=== PATIENT | female | born 1945 | race African-American/Black ===

== ENCOUNTER 2019-04-21 15:19 | Observation (INO) | payer OTHER ==
[2019-04-21 16:34] LABS: Absolute Lymphocytes (CBC) 1.3 K/uL (0.7-4.9); Basophils % 0.5 % (0-1.3); Eosinophils % 0.2 % (0-4.4); Hematocrit 34.2 % (36.0-45.0); Lymphocytes % 27.8 % (15.3-44.8); MPV 11.1 fL (7.6-11.3); Monocytes % 8.7 % (3.3-12.3); RBC Red Blood Cell Count 3.62 M/uL (3.86-4.86)
--- NOTE | 2019-04-21 16:35 | RAD REPORT ---
EXAM DESCRIPTION: RAD - Chest Single View - 04/21/2019 4:30 pm CLINICAL HISTORY: COUGH Chest pain. COMPARISON: <Comparisons> FINDINGS: Portable technique limits examination quality. Mild interstitial pulmonary edema. The heart is mildly enlarged in size. No displaced fractures. IMPRESSION: Mild CHF versus volume overload.
[2019-04-21 16:41] LABS: Protime INR 1.19
[2019-04-21 16:54] LABS: ALT/SGPT 33 U/L (12-78); AST/SGOT 72 U/L (15-37); Albumin 3.4 g/dL (3.4-5.0); Alkaline Phosphatase 43 U/L (45-117); BUN Blood Urea Nitrogen 34 mg/dL (7-18); Bicarbonate 21 mmol/L (21-32); Bilirubin Direct 0.2 mg/dL (0-0.2); Bilirubin Total 0.5 mg/dL (0.2-1.0); CKMB Creatine Kinase MB < 1.0 ng/mL (0.3-3.6); Creatine Phosphokinase 195 U/L (26-192); Glucose Level 85 mg/dL (74-106); Potassium 4.2 mmol/L (3.5-5.1); Protein, Total 7.6 g/dL (6.4-8.2); Sodium Level 137 mmol/L (136-145)
[2019-04-21 17:26] LABS: Blood Morphology Comment NOT SEEN (NOT SEEN); Platelet Estimate DECR; Urine White Blood Cell Casts OK
--- NOTE | 2019-04-21 17:56 | ER ---
Nurse's Notes [facility] Name: Roopa Ortiz Age: 74 yrs Sex: Female : 1945 Arrival Date: 04/21/2019 Time: 15:25 Bed 30 Private MD: Diagnosis: Acute renal failure Presentation: 04/21 15:28 Presenting complaint: Patient states: i feel bad, i came from my doctor and told me i hj might be dehydrated, they sent me here to the ER: reports sweats; denies pain;. Transition of care: patient was not received from another setting of care. Onset of symptoms was April 21, 2019. Risk Assessment: Do you want to hurt yourself or someone else? Patient reports no desire to harm self or others. Initial Sepsis Screen: Does the patient meet any 2 criteria? No. Patient's initial sepsis screen is negative. Does the patient have a suspected source of infection? No. Patient's initial sepsis screen is negative. Care prior to arrival: None. 15:28 Method Of Arrival: Ambulatory 15:28 Acuity: MELISSA 3 hj Historical: - Allergies: 15:30 No Known Allergies; hj - PMHx: 15:30 Diabetes - NIDDM; Hypertension; Hyperlipidemia; hj - PSHx: 15:30 None; hj - Immunization history:: Adult Immunizations up to date. - Social history:: Smoking status: Patient/guardian denies using tobacco. - Ebola Screening: : No symptoms or risks identified at this time. Screenin:30 Abuse screen: Denies threats or abuse. Denies injuries from another. Nutritional sg screening: No deficits noted. Tuberculosis screening: No symptoms or risk factors identified. Never had TB. Fall Risk None identified. Assessment: 15:51 General: Appears in no apparent distress. well groomed, well developed, well nourished, sg Behavior is calm, cooperative, appropriate for age. Neuro: Level of Consciousness is awake, alert, obeys commands, Oriented to person, place, time, Director Tal[employer] are equal bilaterally Moves all extremities. Gait is unsteady, Speech is normal, Facial symmetry appears normal. Cardiovascular: Heart tones S1 S2 present Capillary refill is sluggish in bilateral fingers Chest pain is denied. Respiratory: Airway is patent Respiratory effort is even, unlabored, Respiratory pattern is regular, symmetrical. GI: Abdomen is round non-distended, obese. : No signs and/or symptoms were reported regarding the genitourinary system. EENT: No signs and/or symptoms were reported regarding the EENT system. Derm: Skin is intact, is fragile, Skin is diaphoretic, moist, Skin is normal, Skin temperature is hot. Musculoskeletal: Circulation, motion, and sensation intact. Range of motion: intact in all extremities, Swelling present in right leg and left leg Reports weakness in right arm, left arm, right leg and left leg. 16:55 Reassessment: Patient appears in no apparent distress at this time. Patient and/or sg family updated on plan of care and expected duration. Pain level reassessed. Patient is alert, oriented x 3, equal unlabored respirations, skin warm/dry/pink. 18:47 Reassessment: troponin of 0.11, attempt to notify admitting provider with no answer, sg notified of troponin result and unable to reach the hospitalist. 19:00 General: Appears in no apparent distress. Behavior is calm, cooperative, appropriate ea for age. Pain: Denies pain. Neuro: Level of Consciousness is awake, alert, obeys commands, Oriented to person, place, time, Speech is normal. Cardiovascular: Patient's skin is warm and dry. Respiratory: Airway is patent Respiratory effort is even, unlabored, Respiratory pattern is regular, symmetrical. Derm: Skin is fragile, Skin is moist, Skin is normal, Skin temperature is warm. Musculoskeletal: Parent/caregiver report the patient having She normally uses walker for transfer. 20:00 Reassessment: Patient and/or family updated on plan of care and expected duration. Pain ea level reassessed. Patient is alert, oriented x 3, equal unlabored respirations, skin warm/dry/pink. 20:35 Reassessment: Report called to Ashley LOPEZ on fourth floor. ea 21:07 Reassessment: Patient and/or family updated on plan of care and expected duration. Pain ea level reassessed. Patient is alert, oriented x 3, equal unlabored respirations, skin warm/dry/pink. Pt admitted to fourth floor, left ED via stretcher per tech. Pt tolerating well. No s/s of pain or discomfort noted at this time. Vital Signs: 15:30 BP 115 / 65; Pulse 58; Resp 16; Temp 98.7(O); Pulse Ox 98% on R/A; Weight 158.76 kg; hj Height 5 ft. 6 in. (167.64 cm); Pain 0/10; 15:51 Pulse 58; Temp 99.2(O); Pulse Ox 97% ; mg2 18:01 BP 126 / 57; Pulse 55; Resp 19; Pulse Ox 99% on R/A; sg 19:00 BP 119 / 46; Pulse 56; Resp 18; Pulse Ox 98% on R/A; ea 20:00 BP 119 / 50; Pulse 56; Resp 18; Pulse Ox 98% ; ea 21:08 BP 118 / 51; Pulse 58; Resp 19; Temp 98; Pulse Ox 99% on R/A; Pain 0/10; ea 15:30 Body Mass Index 56.49 (158.76 kg, 167.64 cm) hj ED Course: 15:25 Patient arrived in ED. mr 15:25 Alec Hanson MD is Attending Physician. kdr 15:29 Triage completed. hj 15:30 Arm band placed on right wrist. hj 15:40 Arpit Guevara, JOHN is Primary Nurse. sg 15:53 No provider procedures requiring assistance completed. sg 16:15 Initial lab(s) drawn, by ED staff, sent to lab. First set of blood cultures drawn by sg . Missed attempt(s): 22 gauge in right forearm. Bleeding controlled, band aid applied, catheter tip intact. 16:18 Inserted saline lock: 20 gauge in left forearm, using aseptic technique. Blood ss collected. 16:29 X-ray completed. Portable x-ray completed in exam room. Patient tolerated procedure ml well. 16:30 Second set of blood cultures drawn by me. sg 16:32 Chest Single View XRAY In Process Unspecified. EDMS 16:53 EKG done, by explosive technician. reviewed by Aelc Hanson MD. sm3 17:49 Jennifer Zambrano MD is Hospitalizing Provider. kdr 17:58 Strep swab sent to lab. jp3 18:03 Rapid Strep Sent. jp3 18:15 bariatric bed ordered, confirmation number [id number].. bd 18:25 Straight cath inserted, using sterile technique, 16 Fr. Specimen obtained. Returned ss cloudy urine. Patient tolerated well. 19:00 Patient has correct armband on for positive identification. Bed in low position. Call ea light in reach. Side rails up X2. 20:36 Patient admitted, IV remains in place. ea Administered Medications: No medications were administered Outcome: 17:56 Decision to Hospitalize by Provider. kdr 19:00 Instructed on the need for admit, Demonstrated understanding of instructions. ea 20:34 Condition: stable ea 21:08 Admitted to Med/surg accompanied by tech, room 425, with chart, Report called to briana Ramirez RN 21:09 Patient left the ED. ea Signatures: Dispatcher [employer] EDMS Citlali Ontiveros Steven, RN RN sg Alec Hanson MD MD kdr Rivera, Jany mr Simon, Marie Meredith Hernandez RN JOHN ss Esau Perez RN Kacey Munroe RN RN ea Gardose, Michele RN RN [facility] [place] [place] Shannon Salas 3 John Carey jp3 Corrections: (The following items were deleted from the chart) 15:32 15:30 158.76 kg; Height 5 ft. 6 in.; BMI: 56.4; Pain 0/10; hj hj 15:32 15:30 Pulse 58bpm; Resp 16bpm; Pulse Ox 98% RA; Temp 98.7F Oral; 158.76 kg; Height 5 hj ft. 6 in.; BMI: 56.4; Pain 0/10; hj 16:00 15:51 Derm: Skin is pink, warm \T\ dry. sg sg
--- NOTE | 2019-04-21 17:57 | EDPHYS ---
Physician Documentation [facility] Name: Roopa Ortiz Age: 74 yrs Sex: Female : 1945 Arrival Date: 04/21/2019 Time: 15:25 Bed 30 Private MD: ED Physician Alec Hanson HPI: 04/21 17:40 This 74 yrs old Black Female presents to ER via Ambulatory with complaints of kdr dehydration. 17:40 The patient states that she has been increasingly weak and has SOB with exertion. She kdr went to her Dr. Office today and was thought to be dehydrated and was sent to the ED for evaluation. Onset: The symptoms/episode began/occurred gradually, at an unknown time. Severity of symptoms: At their worst the symptoms were mild in the emergency department the symptoms are unchanged. The patient has not experienced similar symptoms in the past. The patient has been recently seen by a physician: the patient's primary care provider. Historical: - Allergies: 15:30 No Known Allergies; hj - PMHx: 15:30 Diabetes - NIDDM; Hypertension; Hyperlipidemia; hj - PSHx: 15:30 None; hj - Immunization history:: Adult Immunizations up to date. - Social history:: Smoking status: Patient/guardian denies using tobacco. - Ebola Screening: : No symptoms or risks identified at this time. ROS: 17:40 Constitutional: Negative for fever, chills, and weight loss, Eyes: Negative for injury, kdr pain, redness, and discharge, Neck: Negative for injury, pain, and swelling. 17:40 Cardiovascular: Negative for chest pain, palpitations, and edema, Respiratory: Negative for shortness of breath, cough, wheezing, and pleuritic chest pain, Abdomen/GI: Negative for abdominal pain, nausea, vomiting, diarrhea, and constipation, Back: Negative for injury and pain, : Negative for injury, bleeding, discharge, and swelling, Skin: Negative for injury, rash, and discoloration, Neuro: Negative for headache, weakness, numbness, tingling, and seizure activity. Psych: Negative for depression, anxiety, suicide ideation, homicidal ideation, and hallucinations. 17:40 ENT: Positive for difficulty swallowing, sore throat, Dry mucous membranes, Negative for drainage from ear(s). 17:40 Skin: Positive for significant/morbid venous stasis disease. Exam: 17:40 Constitutional: This is a well developed, well nourished patient who is awake, alert, kdr and in no acute distress. Head/Face: Normocephalic, atraumatic. Eyes: Pupils equal round and reactive to light, extra-ocular motions intact. Lids and lashes normal. Conjunctiva and sclera are non-icteric and not injected. Cornea within normal limits. Periorbital areas with no swelling, redness, or edema. Neck: Trachea midline, no thyromegaly or masses palpated, and no cervical lymphadenopathy. Supple, full range of motion without nuchal rigidity, or vertebral point tenderness. No Meningismus. Chest/axilla: Normal chest wall appearance and motion. Nontender with no deformity. No lesions are appreciated. Cardiovascular: Regular rate and rhythm with a normal S1 and S2. No gallops, murmurs, or rubs. Normal PMI, no JVD. No pulse deficits. Respiratory: Lungs have equal breath sounds bilaterally, clear to auscultation and percussion. No rales, rhonchi or wheezes noted. No increased work of breathing, no retractions or nasal flaring. Abdomen/GI: Soft, non-tender, with normal bowel sounds. No distension or tympany. No guarding or rebound. No evidence of tenderness throughout. Vital Signs: 15:30 BP 115 / 65; Pulse 58; Resp 16; Temp 98.7(O); Pulse Ox 98% on R/A; Weight 158.76 kg; hj Height 5 ft. 6 in. (167.64 cm); Pain 0/10; 15:51 Pulse 58; Temp 99.2(O); Pulse Ox 97% ; mg2 18:01 BP 126 / 57; Pulse 55; Resp 19; Pulse Ox 99% on R/A; sg 19:00 BP 119 / 46; Pulse 56; Resp 18; Pulse Ox 98% on R/A; ea 20:00 BP 119 / 50; Pulse 56; Resp 18; Pulse Ox 98% ; ea 21:08 BP 118 / 51; Pulse 58; Resp 19; Temp 98; Pulse Ox 99% on R/A; Pain 0/10; ea 15:30 Body Mass Index 56.49 (158.76 kg, 167.64 cm) MDM: 17:56 Patient medically screened. kdr 17:57 Data reviewed: vital signs, nurses notes, lab test result(s), radiologic studies. kdr Counseling: I had a detailed discussion with the patient and/or guardian regarding: the historical points, exam findings, and any diagnostic results supporting the discharge/admit diagnosis, lab results, radiology results, the need for further work-up and treatment in the hospital. 04/21 15:58 Order name: Basic Metabolic Panel kdr 04/21 15:58 Order name: Blood Culture Adult (2) kdr 04/21 15:58 Order name: CBC with Diff kdr 04/21 15:58 Order name: Ckmb kdr 04/21 15:58 Order name: CPK kdr 04/21 15:58 Order name: Lactate; Complete Time: 17:20 [facility] 04/21 15:58 Order name: LFT's; Complete Time: 17:20 [facility] 04/21 15:58 Order name: Lipase kdr 04/21 15:58 Order name: Procalcitonin; Complete Time: 17:20 [facility] 04/21 15:58 Order name: Protime (+inr); Complete Time: 17:20 [facility] 04/21 15:58 Order name: Ptt, Activated; Complete Time: 17:20 [facility] 04/21 15:58 Order name: Troponin (emerg Dept Use Only) kdr 04/21 15:58 Order name: Urine Microscopic Only kdr 04/21 16:01 Order name: Basic Metabolic Panel; Complete Time: 17:20 EDNM 04/21 15:58 Order name: Chest Single View XRAY; Complete Time: 17:20 [facility] 04/21 15:58 Order name: Accucheck; Complete Time: 16:19 [facility] 04/21 15:58 Order name: Cardiac monitoring; Complete Time: 16:19 [facility] 04/21 15:58 Order name: EKG - Nurse/Tech; Complete Time: 17:31 kdr 04/21 15:58 Order name: IV Saline Lock - Large Bore; Complete Time: 16:20 [facility] 04/21 15:58 Order name: Labs collected and sent; Complete Time: 16:20 [facility] 04/21 16:01 Order name: Blood Culture EDNM 04/21 16:01 Order name: CBC with Automated Diff; Complete Time: 17:47 EDMS 04/21 16:01 Order name: CKMB Creatine Kinase MB; Complete Time: 17:20 EDMS 04/21 16:01 Order name: Creatine Phosphokinase; Complete Time: 17:20 [facility] 04/21 16:22 Order name: Glucose, Ancillary Testing; Complete Time: 16:30 [facility] 04/21 16:42 Order name: CBC Smear Scan; Complete Time: 17:47 EDNM 04/21 17:46 Order name: Rapid Strep kdr 04/21 18:10 Order name: EKG Electrocardiogram; Complete Time: 18:11 [facility] 04/21 18:29 Order name: Urine Dipstick--Ancillary (enter results) bd 04/21 18:46 Order name: Urine Dipstick-Ancillary [facility] 04/21 15:58 Order name: O2 Per Protocol; Complete Time: 16:20 kdr 04/21 15:58 Order name: O2 Sat Monitoring; Complete Time: 16:20 [facility] 04/21 15:58 Order name: Urine Dipstick-Ancillary (obtain specimen); Complete Time: 18:36 [facility] 04/21 18:01 Order name: Straight Cath - Urine; Complete Time: 18:36 sg Administered Medications: No medications were administered Disposition: 04/21/19 17:56 Hospitalization ordered by Jennifer Zambrano for Observation. Preliminary diagnosis is Acute renal failure. - Bed requested for Telemetry/MedSurg (observation). - Status is Observation. ea - Condition is Fair. - Problem is new. - Symptoms have improved. UTI on Admission? No Signatures: Dispatcher [employer] [facility] Arpit Guevara RN RN Alec Hanson MD MD [facility] Esau Perez RN RN Paola Carrera RN RN Kacey Aj RN RN ea Corrections: (The following items were deleted from the chart) 19:24 17:56 Hospitalization Ordered by Jennifer Zambrano MD for Observation. Preliminary diagnosis cg is Acute renal failure. Bed requested for Telemetry/MedSurg (observation). Status is Observation. Condition is Fair. Problem is new. Symptoms have improved. UTI on Admission? No. kdr 19:34 19:24 04/21/2019 17:56 Hospitalization Ordered by Jennifer Zambrano MD for Observation. cg Preliminary diagnosis is Acute renal failure. Bed requested for Telemetry/MedSurg (observation). Status is Observation. Condition is Fair. Problem is new. Symptoms have improved. UTI on Admission? No. cg 21:09 19:34 04/21/2019 17:56 Hospitalization Ordered by Jennifer Zambrano MD for Observation. ea Preliminary diagnosis is Acute renal failure. Bed requested for Telemetry/MedSurg (observation). Status is Observation. Condition is Fair. Problem is new. Symptoms have improved. UTI on Admission? No. cg
--- NOTE | 2019-04-21 18:23 | P.HP ---
Certification for Inpatient Patient admitted to: Observation Practitioner: I am a practitioner with admitting privileges, knowledge of patient current condition, hospital course, and medical plan of care. Services: Services provided to patient in accordance with Admission requirements found in Title 42 Section 412.3 of the Code of Federal Regulations Patient History Date of Service: 04/21/19 Reason for admission: NIMESH History of Present Illness: This is a 74 yr old female with DM2, HTN, HLD admitted for NIMESH. Per patient, she went to her PCP office today and was sent to the ER because she was thought to be dehydrated. Per patient, no labs or workup was done in the PCP office. She initially had gone to PCP for sore throat. She was then worked up in the ER and was to have NIMESH with elevated creatinine along with CHF/volume overload pattern on CXR. Pro-BNP was not ordered. Her labs were also remarkable for elevated troponin and platelet count of 80. Her CK was elevated at 195. She was hemodynamically stable though. At the time of my exam, patient was AAOx3, in no acute distress. She continued to complain of generalized weakness but denied any SOB, CP, dizziness, PAK, vision changes, speech changes, syncopal/ presyncopal, GI complaints. She was admitted for observation for her NIMESH and volume overload/possible CHF exacerbation (new diagnosis). Allergies No Known Allergies Allergy (Unverified 01/08/13 15:14) Physical Examination - Physical Exam General: Alert, In no apparent distress, Oriented x3, Obese HEENT: Atraumatic, PERRLA, Mucous membr. moist/pink, EOMI, Sclerae nonicteric Neck: Supple, 2+ carotid pulse no bruit, No LAD, Without JVD or thyroid abnormality Respiratory: Diminished, Crackles/rales Cardiovascular: Regular rate/rhythm, Normal S1 S2 Gastrointestinal: Normal bowel sounds, No tenderness Musculoskeletal: No tenderness Integumentary: No rashes, Other (chronic skin changes and lymphedema bilateral lower extermities ) Neurological: Normal gait, Normal speech, Normal strength at 5/5 x4 extr, Normal tone, Normal affect - Studies Laboratory Data (last 24 hrs) 04/21/19 16:15: PT 14.0 H, INR 1.19, APTT 33.4 04/21/19 16:15: WBC 4.5, Hgb 12.2, Hct 34.2 L, Plt Count 80 L 04/21/19 16:15: Sodium 137, Potassium 4.2, BUN 34 H, Creatinine 2.18 H, Glucose 85, Total Bilirubin 0.5, AST 72 H, ALT 33, Alkaline Phosphatase 43 L Assessment and Plan - Problems (Diagnosis) (1) NIMESH (acute kidney injury) Current Visit: Yes Status: Acute (2) Thrombocytopenia Current Visit: Yes Status: Acute (3) Volume overload Current Visit: Yes Status: Acute (4) Morbid obesity Current Visit: No Status: Chronic (5) Elevated troponin Current Visit: Yes Status: Acute (6) Hypertension Current Visit: Yes Status: Chronic Qualifiers: Hypertension type: essential hypertension Qualified Code(s): I10 - Essential (primary) hypertension (7) Diabetes mellitus Current Visit: Yes Status: Acute Qualifiers: Diabetes mellitus type: type 2 Diabetes mellitus alf insulin use: without social sciences department chair use Diabetes mellitus complication status: with kidney complications Diabetes mellitus complication detail: with other kidney complication Qualified Code(s): E11.29 - Type 2 diabetes mellitus with other diabetic kidney complication (8) Urinary tract infection Current Visit: Yes Status: Suspected Qualifiers: Urinary tract infection type: acute cystitis Hematuria presence: without hematuria Qualified Code(s): N30.00 - Acute cystitis without hematuria - Plan Admit to floor. Volume overload pattern on CXR. Elevated Cr, unsure of baseline. No recent labs to compare with. Renal utlrasound ordered, pending. ECHO ordered, pending. Trend troponins - elevated likely secondary to volume overload along with NIMESH. Nephrology consulted, awaiting recommendations. Hold IVF at this time. Will diurese as needed. Rocephin for suspected UTI, UCx pending. Restart home medications at tolerated. Fluid restriction, daily weights. - Advance Directives Does patient have a Living Will: No Does patient have a Durable POA for Healthcare: No
[2019-04-21 18:40] LABS: Troponin (Emerg Dept Use Only) 0.11 ng/mL (0.0-0.045)
[2019-04-21 18:45] LABS: Urine Blood TRACE (NEG); Urine Glucose NEGATIVE (NEG); Urine Protein 2+ (NEG); Urine pH 5.5 (5.0-7.0)
[2019-04-21 19:12] LABS: Urine Bacteria >50 /HPF (<20); Urine Culture Reflex Order REFLEXED; Urine RBC <5 /HPF (NONE SEEN)
[2019-04-21] MEDS ORDERED: FUROSEMIDE 40 MG/4 ML VIAL IV ONE (21:41)
[2019-04-21] MEDS ORDERED: CEFTRIAXONE 1 GM/50 ML BAG IV SCH (22:00)
[2019-04-21] MEDS ORDERED: CEFTRIAXONE 1 GM/10 ML SYR IVP SCH (23:00)
[2019-04-21] MEDS ORDERED: CEFTRIAXONE 1000 MG/VIAL IVP SCH (23:00)
[2019-04-21] MEDS: CEFTRIAXONE 1 GM/10 ML SYR IVP SCH (23:40)
[2019-04-21] MEDS ORDERED: CEFTRIAXONE/SWI 1gm 1 GM/10 ML SYR ONE (23:57)
[2019-04-22] MEDS ORDERED: D50W 25 GM/50 ML SYRINGE IV PRN (01:36)
[2019-04-22] MEDS ORDERED: GLUCAGON 1 MG/VIAL IM PRN (01:36)
[2019-04-22 04:29] LABS: Absolute Lymphocytes (CBC) 1.4 K/uL (0.7-4.9); Basophils % 0.4 % (0-1.3); Eosinophils % 0.7 % (0-4.4); Hematocrit 34.5 % (36.0-45.0); Lymphocytes % 27.4 % (15.3-44.8); MPV 10.8 fL (7.6-11.3); Monocytes % 7.3 % (3.3-12.3); RBC Red Blood Cell Count 3.65 M/uL (3.86-4.86)
[2019-04-22 04:42] LABS: Albumin 3.2 g/dL (3.4-5.0); Bilirubin Total 0.4 mg/dL (0.2-1.0); Potassium 4.1 mmol/L (3.5-5.1); Protein, Total 7.4 g/dL (6.4-8.2)
[2019-04-22] MEDS: INSULIN -REGULAR HUMAN 50 UNIT/0.5 ML ML SQ SCH ×4 (07:25→21:00)
--- NOTE | 2019-04-22 07:56 | EKG ---
Test Date: 2019-04-21 Test Time: 16:52:31 [employer]ator: JAVIER MEASUREMENT RESULTS: Intervals: Rate: 57 OR: 200 QRSD: 92 QT: 442 QTc: 430 [place]: P: 69 OR: 200 QRS: 34 T: 41 INTERPRETIVE STATEMENTS: Sinus bradycardia Otherwise normal ECG Compared to ECG 11/07/2001 21:05:00 Sinus rhythm no longer present T-wave abnormality no longer present Possible ischemia no longer present Left ventricular hypertrophy no longer present Electronically Signed On 04-22-19 07:55:08 CDT by You Berg
--- NOTE | 2019-04-22 08:27 | RAD REPORT ---
EXAM DESCRIPTION: US - Renal Ultrasound-Complete - 04/22/2019 8:19 am CLINICAL HISTORY: Elevated Creatinine, Eval for Chronic disease COMPARISON: No comparisons FINDINGS: The kidneys are normal in echogenicity but demonstrate thin cortex bilaterally. The right kidney measures 11.0 x 5.2 x 4.5 cm. No hydronephrosis, focal mass or perinephric fluid. The left kidney measures 9.5 x 5.5 x 5.1 cm. No hydronephrosis, focal mass or perinephric fluid. The urinary bladder is incompletely distended without gross abnormality seen. IMPRESSION: Cortical thinning involving both kidneys is noted. Otherwise, unremarkable study.
[2019-04-22] MEDS: PHENOL 1.4% ORAL SPRAY 180ML MM PRN ×2 (10:52→15:11)
[2019-04-22] MEDS: NA CHLORIDE 0.9% 1,000 ML IV SCH (12:23)
--- NOTE | 2019-04-22 12:52 | ECHO ---
HEIGHT: 5 ft 6 in WEIGHT: 350 lb 0 oz DATE OF STUDY: 04/22/[address]: Jennifer Zambrano MD 2-DIMENSIONAL: NO M.MODE: NO DOPPLER: NO COLOR FLOW: YES TDS: NO PORTABLE: NO DEFINITY: NO BUBBLE STUDY: NO DIAGNOSIS: VOLUME OVERLOAD CARDIAC HISTORY: CATHERIZATION: NO SURGERY: NO PROSTHETIC VALVE: NO PACEMAKER: NO MEASUREMENTS (cm) DIASTOLIC (NORMALS) SYSTOLIC (NORMALS) IVSd 1.2 (0.6-1.2) LA Diam 3.4 (1.9-4.0) LVEF 64% LVIDd 4.4 (3.5-5.7) LVIDs 2.9 (2.0-3.5) %FS 35% LVPWd 1.2 (0.6-1.2) Ao Diam 2.9 (2.0-3.7) 2 DIMENSIONAL ASSESSMENT: RIGHT ATRIUM: NORMAL LEFT ATRIUM: NORMAL RIGHT VENTRICLE: NORMAL LEFT VENTRICLE: LEFT VENTRICULAR HYPERTROPHY TRICUSPID VALVE: NORMAL MITRAL VALVE: NORMAL PULMONIC VALVE: NORMAL AORTIC VALVE: NORMAL PERICARDIAL EFFUSION: NONE AORTIC ROOT: NORMAL LEFT VENTRICULAR WALL MOTION: NORMAL. DOPPLER/COLOR FLOW: PHYSIOLOGIC TRICUSPID REGURGITATION. NORMAL RIGHT VENTRICULAR SYSTOLIC PRESSURE. COMMENTS: NORMAL LEFT VENTRICULAR EJECTION FRACTION. BORDERLINE LEFT VENTRICULAR HYPERTROPH, OTHERWISE NORMAL 2D ECHO WITH DOPPLER. TECHNOLOGIST: SONDRA CAMEJO
--- NOTE | 2019-04-22 14:27 | PN ---
Date of Progress Note: 04/22/2019 Subjective: The patient was admitted with acute kidney injury. KELLEY/MARÍA Voice ID: [id number] Report ID: [id number]
--- NOTE | 2019-04-22 15:08 | P.PN ---
Subjective Date of Service: 04/22/19 Chief Complaint: NIMESH Subjective: No C/O voiced Patient seen and examined at bedside. Granddaughter at bedside. Chart reviewed and case discussed with nursing staff and Dr. Holguin. Patient with no complaints today No acute event noted overnight. Review of Systems 10-point ROS is otherwise unremarkable Physical Examination - Vital Signs Temperature: 98.7 F Blood Pressure: 135/60 Pulse: 56 Respirations: 18 Pulse Ox (%): 98 - Physical Exam General: Alert, In no apparent distress, Oriented x3, Obese Respiratory: Clear to auscultation bilaterally, Normal air movement Cardiovascular: Regular rate/rhythm, Normal S1 S2 Gastrointestinal: Normal bowel sounds, No tenderness Integumentary: Other (Chronic bilateral LE lymphedema and skin changes) - Studies Laboratory Data (last 24 hrs) 04/21/19 16:15: PT 14.0 H, INR 1.19, APTT 33.4 04/21/19 16:15: Lipase 181 04/21/19 16:15: WBC 4.5, Hgb 12.2, Hct 34.2 L, Plt Count 80 L 04/21/19 16:15: Sodium 137, Potassium 4.2, BUN 34 H, Creatinine 2.18 H, Glucose 85, Total Bilirubin 0.5, AST 72 H, ALT 33, Alkaline Phosphatase 43 L Microbiology Data (last 24 hrs): 04/21/19 17:58 Throat Group A Streptococcus Rapid Screen - Final Assessment And Plan - Current Problems (Diagnosis) (1) NIMESH (acute kidney injury) Current Visit: Yes Status: Acute Plan: Elevated Cr, unsure of baseline. No recent labs to compare with. Renal ultrasound with cortical thinning and normal echogenic kidneys. - Patient could have underlying CKD due to long standing DM and HTN. - Nephrology consulted, recommendations appreciated. - Hold IVF at this time. - Continue IV diuresis (2) Volume overload Current Visit: Yes Status: Acute Plan: Continue IV diuresis - ECHO w/ normal EF - Fluid restriction, daily weights. (3) Thrombocytopenia Current Visit: Yes Status: Acute (4) Elevated troponin Current Visit: Yes Status: Acute Plan: Troponin slightly elevated, though stable. Doubt ACS - elevated likely secondary to volume overload along with NIMESH. Denies chest pain (5) Hypertension Current Visit: Yes Status: Chronic Plan: Continue home medications at tolerated. Qualifiers: Hypertension type: essential hypertension Qualified Code(s): I10 - Essential (primary) hypertension (6) Diabetes mellitus Current Visit: Yes Status: Acute Plan: Accu-check and sliding scale insuline Qualifiers: Diabetes mellitus type: type 2 Diabetes mellitus skilled nursing insulin use: without skilled nursing use Diabetes mellitus complication status: with kidney complications Diabetes mellitus complication detail: with other kidney complication Qualified Code(s): E11.29 - Type 2 diabetes mellitus with other diabetic kidney complication (7) Urinary tract infection Current Visit: Yes Status: Suspected Plan: Rocephin for suspected UTI, UCx pending. Qualifiers: Urinary tract infection type: acute cystitis Hematuria presence: without hematuria Qualified Code(s): N30.00 - Acute cystitis without hematuria (8) Morbid obesity Current Visit: No Status: Chronic - Plan DVT prophylaxis: Hold chemical AC due to thrombocytopenia GI prophylaxis: None Diet: Renal, fluid restriction Disposition: Pending symptomatic improvement and renal workup Discharge Plan: Home Plan to discharge in: 24 Hours
--- NOTE | 2019-04-22 16:09 | CON ---
Date of Consultation: 04/22/2019 Additional Consulting Physician: Dr. Zambrano. Reason For Consultation: Elevated BUN and creatinine and fluid management. History Of Present Illness: This is a 74-year-old female with significant past medical history of di abetes, hypertension, hyperlipidemia. The patient was in her doctor's office, found to have weakness and dehydrated. Her workup in the office showed elevation in BUN and creatinine. For that reason, the patient was sent to the hospital, reviewing the record for the patient. The patient denied takin g any nonsteroidal. No IV contrast. According to the patient, no recent change in her medications. The patient no recent hospitalization. The patient's home medication does not have any ARB, but she was on diuresis. The patient is complaining from shortness of breath. Upon presentation to the [facility], the patient's creatinine was 2.1. After gentle hydration, creatinine down to 1.8. Reviewing the record for the patient, her blood pressure on presentation was down to 115. I do not have recent lab test. The patient earliest lab test we have it back in 2012. At that time, her creatinine was 1.04 with GFR of above 60. Past Medical History: Include: 1.Diabetes complicated with neuropathy. 2.Hypertension. 3.Hyperlipidemia. 4.Lymphedema. Allergies: NO KNOWN DRUGS ALLERGY. Social History: Non-obtainable. Past Surgical History: Noncontributory. Review of Systems: Head and Neck: No red eye. No ear pain. GI: Decreased intake. : No polyuria. No dysuria. No hematuria. Manager Card: No vaginal discharge. Respiratory: Has shortness of breath. Cardiovascular: Has leg edema. Has lymphedema. Musculoskeletal: Generalized fatigue. Neuro: Difficulty ambulating. Skin: No rash. Has venous stasis. Endocrine: No polydipsia. Physical Examination: Vital Signs: When I saw the patient, blood pressure of 135/60, pulse of 56. Chest: Clear to auscultation. Heart: S1, S2. Regular. Abdomen: Soft, nontender. Extremities: Lymphedema, bilateral; +3 venous stasis change, bilateral. Laboratory Data: WBC 5.1, H and H 12.2/35.5, back in 2012, H and H 9.7/28.6. Sodium 137, potassium 4.1, bicarb 23, BUN 34, creatinine 1.8, calcium of 8. Urinalysis; specific gravity of 1.020, wbc's o f 20. Renal ultrasound 09/12.5, no hydronephrosis, cortical thinning. Current Medications: In the hospital include: 1.Lasix. 2.Ceftriaxone. Assessment And Plan: 1.Acute kidney injury secondary to prerenal, superimposed with toxic acute tubular necrosis and prot einuric, normal-sized kidney. Hydronephrosis has been ruled out. I am going to go ahead and start t he patient on gentle hydration and we will monitor the patient closely. 2.I am going to hold all blood pressure medications. 3.Urinary tract infection. We will start the patient on ceftriaxone. We will follow up culture. 4.Hypertension. Currently, blood pressure on the lower side. With the presence of acute kidney inj ury, hold all blood pressure medications. 5.Deconditioning. Continue PT, OT. 6.Lymphedema. We will accept the edema for the time being. We will follow up. RAKEL Voice ID: [id number] Report ID: [id number]
[2019-04-22] MEDS: CEFTRIAXONE 1 GM/10 ML SYR IVP SCH (20:29)
[2019-04-22] MEDS: CARVEDILOL 3.125 MG TAB PO SCH (20:29)
[2019-04-22] MEDS ORDERED: ATORVASTATIN 10 MG TAB PO SCH (21:00)
[2019-04-22] MEDS ORDERED: GABAPENTIN 100 MG CAP PO SCH (21:00)
[2019-04-22] MEDS ORDERED: HOME MED 1 EA UNK (Pravastatin Sodium [Pravastatin Sodium] 1 TAB) PO SCH (21:00)
[2019-04-23 03:09] VITALS: BMI 59.0
[2019-04-23 05:15] LABS: Albumin 2.8 g/dL (3.4-5.0); Magnesium 1.9 mg/dL (1.8-2.4); Phosphorus 2.6 mg/dL (2.5-4.9); Thyroid Stimulating Hormone 0.592 uIU/mL (0.360-3.740)
[2019-04-23] MEDS ORDERED: LEVOTHYROXINE SOD 0.1 MG TAB PO SCH (06:00)
[2019-04-23] MEDS: INSULIN -REGULAR HUMAN 50 UNIT/0.5 ML ML SQ SCH ×2 (07:30→11:30)
[2019-04-23] MEDS: NA CHLORIDE 0.9% 1,000 ML IV SCH ×2 (08:00→09:45)
[2019-04-23] MEDS: CARVEDILOL 3.125 MG TAB PO SCH (08:41)
[2019-04-23 08:43] VITALS: BP 126/58
[2019-04-23 08:49] VITALS: TEMP 97.5
[2019-04-23] MEDS ORDERED: HOME MED 1 EA UNK (Losartan Potassium [Losartan Potassium] 1 TAB) PO SCH (09:00)
[2019-04-23] MEDS ORDERED: FOLIC ACID PO SCH (09:00)
[2019-04-23] MEDS ORDERED: ASPIRIN 81 MG CHEWABLE TABLET PO SCH (09:00)
[2019-04-23] MEDS ORDERED: MULTIVIT W/ MINERAL TAB PO SCH (09:00)
[2019-04-23] MEDS ORDERED: MULTIVIT CALC MINS PO SCH (09:00)
[2019-04-23] MEDS ORDERED: [UNRECOGNIZED DRUG - OTHER] PO SCH (09:00)
[2019-04-23] MEDS ORDERED: LOSARTAN POTASSIUM 50 MG TABLET PO SCH (09:00)
[2019-04-23] MEDS ORDERED: AMLODIPINE 10 MG TAB PO SCH (09:00)
--- NOTE | 2019-04-23 11:18 | P.PN ---
Subjective Date of Service: 04/23/19 Chief Complaint: NIMESH Subjective: No C/O voiced Patient seen and examined at bedside. Granddaughter at bedside. Chart reviewed and case discussed with nursing staff and Dr. Holguin. Rapid response called yesterday when patient on the bedside comode, while having a bowel movement. Patient then placed back in bed. She did have bradycardia at that time, which resolved. Patient's symptoms also resolved. Patient and family refused to work with physical therapy stating that physical therapist is too small and patient is afraid of falling. Per family and patient, patient was independent prior to admission using a lift chair at home and a walker to move around. This morning, patient with no complaints. Denies any chest pain, shortness of breath, dizziness, headache, GI or complaints. Review of Systems 10-point ROS is otherwise unremarkable Physical Examination - Vital Signs Temperature: 97.5 F Blood Pressure: 126/58 Pulse: 58 Respirations: 16 Pulse Ox (%): 96 - Physical Exam General: Alert, In no apparent distress, Oriented x3, Obese Respiratory: Clear to auscultation bilaterally, Normal air movement Cardiovascular: Regular rate/rhythm, Normal S1 S2 Gastrointestinal: Normal bowel sounds, No tenderness Assessment And Plan - Current Problems (Diagnosis) (1) NIMESH (acute kidney injury) Current Visit: Yes Status: Acute Plan: Elevated Cr, unsure of baseline. No recent labs to compare with. Renal ultrasound with cortical thinning and normal echogenic kidneys. - Patient could have underlying CKD due to long standing DM and HTN versus prerenal - Nephrology consulted, recommendations appreciated. - Continue IV diuresis (2) Volume overload Current Visit: Yes Status: Acute Plan: Continue IV diuresis - ECHO w/ normal EF - Fluid restriction, daily weights. (3) Thrombocytopenia Current Visit: Yes Status: Acute (4) Elevated troponin Current Visit: Yes Status: Acute Plan: Troponin slightly elevated, though stable. Doubt ACS - elevated likely secondary to volume overload along with NIMESH. Denies chest pain (5) Hypertension Current Visit: Yes Status: Chronic Plan: Continue home medications at tolerated. Qualifiers: Hypertension type: essential hypertension Qualified Code(s): I10 - Essential (primary) hypertension (6) Diabetes mellitus Current Visit: Yes Status: Acute Plan: Accu-check and sliding scale insuline Qualifiers: Diabetes mellitus type: type 2 Diabetes mellitus manager terminal insulin use: without manager terminal use Diabetes mellitus complication status: with kidney complications Diabetes mellitus complication detail: with other kidney complication Qualified Code(s): E11.29 - Type 2 diabetes mellitus with other diabetic kidney complication (7) Urinary tract infection Current Visit: Yes Status: Suspected Plan: Rocephin for suspected UTI, UCx pending. Qualifiers: Urinary tract infection type: acute cystitis Hematuria presence: without hematuria Qualified Code(s): N30.00 - Acute cystitis without hematuria (8) Morbid obesity Current Visit: No Status: Chronic (9) Physical debility Current Visit: Yes Status: Acute Plan: Physical therapy was consulted. Patient and family refused with physical therapy as they stated physical that was too small. Unsure if patient is a safe discharge home as she is not working with physical therapy here. Family states that she wants to go home, refusing facility placement [facility] or skilled. Discussed with patient and daughter regarding working with physical therapy here as they are trained and able to assist patient. Social work on board for discharge planning - Plan DVT prophylaxis: Hold chemical AC due to thrombocytopenia GI prophylaxis: None Diet: Renal, fluid restriction Disposition: Pending symptomatic improvement and renal workup. Unsure if safe discharge home. Social work on board for discharge planning
[2019-04-23 11:52] VITALS: O2SAT 96
--- NOTE | 2019-04-23 12:10 | P.PN ---
Subjective Date of Service: 04/23/19 Chief Complaint: NIMESH Subjective: Improving Pt was sent form PCP for wekaness and dehydration today no overnight events pt stated she feels better Cr stable i had prolonged discussion with pt and granddaughter , pt and family insisting on going home, pt can be discharged today to avoid NSAID, hold losrtan at home F/U with nephrology clinic in 2-3 wks Physical Examination - Vital Signs Temperature: 97.5 F Blood Pressure: 126/58 Pulse: 58 Respirations: 16 Pulse Ox (%): 96 - Physical Exam General: In no apparent distress, Oriented x3, Obese HEENT: Atraumatic Neck: Supple, Without JVD or thyroid abnormality Respiratory: Clear to auscultation bilaterally, Normal air movement Cardiovascular: No gallops, No rubs, No murmurs, Other (Lymphedema) Gastrointestinal: Normal bowel sounds, Soft and benign Assessment And Plan - Current Problems (Diagnosis) (1) NIMESH (acute kidney injury) Current Visit: Yes Status: Acute - Plan Acute kidney injury Vs progressive CKD unknwon baseline Cr , last cr in 2015 ~1.0 now Cr 1.9 and stable US: thin coretx UA +2 pro, few RBCs hold losartan F/u with nephrology clinic as an Op -m 2-3 wks HTN controlled hold losratan UTI ont Abx ,
--- NOTE | 2019-04-23 13:40 | P.DS ---
Admission Date: 04/21/19 Discharge Date: 04/23/19 Disposition: ROUTINE DISCHARGE Discharge Condition: FAIR Reason for Admission: NIMESH Consultations: Nephrology - Problems (1) NIMESH (acute kidney injury) Current Visit: Yes Status: Acute (2) Volume overload Current Visit: Yes Status: Acute (3) Thrombocytopenia Current Visit: Yes Status: Acute (4) Elevated troponin Current Visit: Yes Status: Acute (5) Hypertension Current Visit: Yes Status: Chronic Qualifiers: Hypertension type: essential hypertension Qualified Code(s): I10 - Essential (primary) hypertension (6) Diabetes mellitus Current Visit: Yes Status: Acute Qualifiers: Diabetes mellitus type: type 2 Diabetes mellitus [facility] insulin use: without [facility] use Diabetes mellitus complication status: with kidney complications Diabetes mellitus complication detail: with other kidney complication Qualified Code(s): E11.29 - Type 2 diabetes mellitus with other diabetic kidney complication (7) Urinary tract infection Current Visit: Yes Status: Acute Qualifiers: Urinary tract infection type: acute cystitis Hematuria presence: without hematuria Qualified Code(s): N30.00 - Acute cystitis without hematuria (8) Morbid obesity Current Visit: Yes Status: Chronic (9) Physical debility Current Visit: Yes Status: Acute Brief History of Present Illness: This is a 74 yr old female with DM2, HTN, HLD admitted for NIMESH. Per patient, she went to her PCP office today and was sent to the ER because she was thought to be dehydrated. Per patient, no labs or workup was done in the PCP office. She initially had gone to PCP for sore throat. She was then worked up in the ER and was to have NIMESH with elevated creatinine along with CHF/volume overload pattern on CXR. Pro-BNP was not ordered. Her labs were also remarkable for elevated troponin and platelet count of 80. Her CK was elevated at 195. She was hemodynamically stable though. At the time of my exam, patient was AAOx3, in no acute distress. She continued to complain of generalized weakness but denied any SOB, CP, dizziness, PAK, vision changes, speech changes, syncopal/ presyncopal, GI complaints. Hospital Course: She was admitted for observation for her NIMESH and volume overload/possible CHF exacerbation (new diagnosis). Nephrology was consulted. She was started with IV Lasix and an echocardiogram was done, which was with normal ejection fraction but LVH. Renal ultrasound was also done, no underlying hydronephrosis or increased echogenicity noted. Patient symptoms seemed to improve. Her stay was complicated by a Rapid response that was called when patient on the bedside comode, while having a bowel movement. It seemed that this was a vasovagal episode. Patient then placed back in bed. She did have bradycardia at that time , which resolved. Patient's symptoms of dizziness also resolved. Patient and family refused to work with physical therapy stating that physical therapist is too small and patient is afraid of falling. Patient and family was educated and counseled on the role of physical therapy by the physical therapist and myself. Family continue to refuse along with the patient. Per family and patient, patient was independent prior to admission using a lift chair at home and a walker to move around. Even though it is not my 1st preference, patient and family refuses residential facility and refuse home health. Discussed this case with the rn case management. Unfortunately, patient also does not have resources. She was cleared from nephrology point of view. Medically she was stable for discharge. She was then discharged home with family, who states that they have support at home and patient was fairly independent prior to admission as noted above. Vital Signs/Physical Exam: Temp Pulse Resp BP Pulse Ox 97.5 F 58 16 126/58 L 96 04/23/19 12:10 04/23/19 12:10 04/23/19 12:10 04/23/19 12:10 04/23/19 12:10 General: Alert, In no apparent distress, Obese HEENT: Atraumatic, PERRLA, EOMI Neck: Supple, JVD not distended Respiratory: Clear to auscultation bilaterally, Normal air movement Cardiovascular: Regular rate/rhythm, Normal S1 S2 Gastrointestinal: Normal bowel sounds, No tenderness Musculoskeletal: No tenderness, Other (Chronic severe lymphedema, bilaterally. Heart bilateral lower extremity skin changes.) Integumentary: No rashes Neurological: Normal speech, Normal tone, Normal affect Lymphatics: No axilla or inguinal lymphadenopathy Laboratory Data at Discharge: WBC 5.1 K/uL (4.3-10.9) 04/22/19 03:40 Hgb 12.2 g/dL (12.0-15.0) 04/22/19 03:40 Hct 34.5 % (36.0-45.0) L 04/22/19 03:40 Plt Count 68 K/uL (152-406) L 04/22/19 03:40 PT 14.0 SECONDS (9.5-12.5) H 04/21/19 16:15 INR 1.19 04/21/19 16:15 APTT 33.4 SECONDS (24.3-36.9) 04/21/19 16:15 Sodium 140 mmol/L (136-145) 04/23/19 04:03 Potassium 4.0 mmol/L (3.5-5.1) 04/23/19 04:03 BUN 35 mg/dL (7-18) H 04/23/19 04:03 Creatinine 1.97 mg/dL (0.55-1.3) H 04/23/19 04:03 Glucose 97 mg/dL (74-106) 04/23/19 04:03 Phosphorus 2.6 mg/dL (2.5-4.9) 04/23/19 04:03 Magnesium Cancelled 04/23/19 05:00 Total Bilirubin 0.4 mg/dL (0.2-1.0) 04/22/19 03:40 AST 63 U/L (15-37) H 04/22/19 03:40 ALT 31 U/L (12-78) 04/22/19 03:40 Alkaline Phosphatase 43 U/L (45-117) L 04/22/19 03:40 Troponin I 0.12 ng/mL (0.0-0.045) H 04/21/19 23:44 Lipase 181 U/L (73-393) 04/21/19 16:15 Home Medications: Amlodipine Besylate 1 tab PO DAILY 04/22/19 Aspirin Chewable [Aspirin Chewable*] 1 tab PO DAILY 04/22/19 Carvedilol 1 tab PO BID 04/22/19 Gabapentin [Neurontin*] 100 mg PO BEDTIME 04/22/19 Levothyroxine Sodium 1 tab PO [id number] 04/22/19 Multivit,Calc,Mins/Folic Acid [One-A-Day Proactive 65 Plus Tb] 1 tab PO DAILY Pravastatin Sodium 1 tab PO BEDTIME 04/22/19 Spironolact/Hydrochlorothiazid [Spironolactone-Hctz 25-25 Tab] 1 tab PO BID Torsemide 100 mg PO DAILY 04/22/19 Amoxicillin/Potassium Clav [Augmentin 500-125 Tablet] 1 each PO BID #6 tablet New Medications: Amoxicillin/Potassium Clav [Augmentin 500-125 Tablet] 1 each PO BID #6 tablet Patient Discharge Instructions: These follow up with the primary care physician to 2-3 days. Please follow up with Nephrology in 2 weeks. Please return to the emergency room for worsening symptoms Diet: Renal Followup: Leonel Vera MD [ACTIVE - CAN ADMIT] - Time spent managing pt's care (in minutes): 65
== END 2019-04-23 14:49 | disposition home or self-care (01) ==
LOC: ER 15:19 → INTOOBSV 18:15 → ERHOLD 18:15 → 4TH 20:38
PROVIDERS: ADMIT Family Medicine; ATTEND Family Medicine
DX: N17.0 Acute kidney failure with tubular necrosis (principal); E87.70 Fluid overload, unspecified; D69.6 Thrombocytopenia, unspecified; E11.29 Type 2 diabetes mellitus with other diabetic kidney complication; I11.0 Hypertensive heart disease with heart failure; I50.9 Heart failure, unspecified; N39.0 Urinary tract infection, site not specified; R77.8 Other specified abnormalities of plasma proteins; E78.5 Hyperlipidemia, unspecified; E11.40 Type 2 diabetes mellitus with diabetic neuropathy, unspecified; I89.0 Lymphedema, not elsewhere classified; E66.01 Morbid (severe) obesity due to excess calories; Z68.43 Body mass index [BMI] 50.0-59.9, adult; R53.81 Other malaise; R80.9 Proteinuria, unspecified
CPT/HCPCS: 36415; 51702; 71045; 76770; 80048; 80053; 80069; 80076; 81003; 81015; 82550; 82553; 82962; 83605; 83690; 83735; 83880; 83970; 84145; 84443; 84484; 85025; 85610; 85730; 87040; 87070; 87077; 87081; 87086; 87088; 87186; 93005; 93306; 97163; 99285; G0378; J0696; J1940; J7030